=== PATIENT | female | born 1990 ===

== ENCOUNTER 2020-07-19 16:51 | Observation (INO) | payer OTHER ==
[2020-07-19 18:39] LABS: Hemoglobin 10.4 gm/dl (10.1-14.3); Mean Corpuscular HGB Conc 34 % (30-34); Mean Corpuscular Volume 85 fl (79-97); Platelet Count 244 K/mm3 (140-440); Red Blood Count 3.66 M/mm3 (3.65-5.03); Red Cell Distribution Width 14.6 % (13.2-15.2)
[2020-07-19 18:46] LABS: Bacteria,Urine 1+ /HPF (Negative); Bilirubin,Urine NEG (Negative); Blood,Urine NEG (Negative); Color,Urine Yellow (Yellow); Mucus,Urine FEW /HPF; Urobilinogen,Urine < 2.0 mg/dL (<2.0)
[2020-07-19 18:55] LABS: Alanine Aminotransferase 9 units/L (7-56); Uric Acid 4.3 mg/dL (3.5-7.6)
[2020-07-19] MEDS ORDERED: LACTATED RINGERS 1,000 ML ONE (20:56)
[2020-07-19] MEDS: glyBURIDE 5 MG TAB PO SCH (22:11)
[2020-07-20] MEDS: LACTATED RINGERS 1,000 ML IV SCH ×2 (03:40→12:54)
[2020-07-20] MEDS: PRENATAL VIT27-FE FUMARATE-FOLIC ACID VIT TAB PO SCH (10:03)
--- NOTE | 2020-07-20 10:55 | History and Physical Report ---
History of Present Illness Date of examination: 07/20/20 Date of admission: 07/19/20 19:20 Chief complaint: elevated blood pressures, gestational diabetes at 34 weeks History of present illness: 30 yo at 34w3d c/b prior c/s x 3, gestational diabetes (recently started on meds 07/19/2020), chronic hypertension, class III obesity presenting from [facility] for 24H TP, PIH workup, and CBG monitoring. Started on labetolol 200mg BID on 07/19/2020. Started on glyburide 5mg BID 07/19/2020. Patient denies PIH complaints at this time. Has hx of mildy blurry vision x multiple months. Past History Past Medical History: hypertension, diabetes Past Surgical History: section (x3) Family/Genetic History: diabetes, heart disease, hypertension, stroke, cancer, other (alzhiemers) Social history: no significant social history - Obstetrical History : 4 Para: 3 Hx # Term Pregnancies: 3 Number of Living Children: 3 Medications and Allergies Allergies Allergy/AdvReac Type Severity Reaction Status Date / Time No Known Allergies Allergy Verified 07/19/20 17:17 Active Meds: Active Medications Betamethasone Acet/Betameth SodPhos (Celestone Soluspan) 12 mg IM Q24HR [facility] Glyburide (Diabeta) 5 mg PO BIDDIAB [facility] Last Admin: 07/19/20 22:11 Dose: 5 mg Documented by: Lactated Ringer's (Lactated Ringers) 1,000 mls @ 125 mls/hr IV DIRECT [facility] Last Admin: 07/20/20 03:40 Dose: 125 mls/hr Documented by: Labetalol HCl (Labetalol) 200 mg PO BID [facility] Last Admin: 07/20/20 10:03 Dose: 200 mg Documented by: Labetalol HCl (Labetalol) 20 mg IV Q1HR PRN PRN Reason: Hypertension Multivitamins/Iron/Calcium ( Vitamin) 1 each PO QDAY [facility] Last Admin: 07/20/20 10:03 Dose: 1 each Documented by: Review of Systems All systems: negative (expect HPI) - Vital Signs Vital signs: Vital Signs Pulse BP 77 144/85 07/19/20 17:40 07/19/20 17:40 Temp Pulse Resp BP Pulse Ox 97.7 F 78 18 176/104 98 07/20/20 08:58 07/20/20 10:03 07/20/20 08:58 07/20/20 10:03 07/19/20 19:56 - Physical Exam Abdomen: Positive: normal appearance, normal bowel sounds, other (gravid) - Obstetrical FHR: category 1 Uterine Contraction Monitor Mode: External Uterine Contraction Pattern: Absent Results Result Diagrams: 07/19/20 Unknown 07/19/20 Unknown Abnormal lab results 07/19/20 07/19/20 07/20/20 Range/Units Unknown Unknown 05:50 WBC 11.8 H (4.5-11.0) K/mm3 Creatinine 0.4 L (0.6-1.2) mg/dL POC Glucose 68 L (70-105) mg/dL All other labs normal. Assessment and Plan - Patient Problems (1) Chronic hypertension affecting Current Visit: Yes Status: Acute Plan to address problem: Presenting for blood pressure evaluation given elevated BPs to 160s in [facility] clinic --Started on labetolol 200mg BID, titrate prn --IV antihyertensives prn --BMZ x 2 for lung maturity --Consider magnesium and antibiotics if indication for delivery --24H TP pending --monitor of s/sx of preeclampsia --Anticipate repeat c/s if indication for delivery --Declines BTL after mulitple discussions regarding risks associated with multiple c/s with medical comorbidites (2) Gestational diabetes mellitus (GDM) Current Visit: Yes Status: Acute Plan to address problem: --Monitor CBGs per routine --Started on glyburide 5mg BID -- (3) H/O: Current Visit: Yes Status: Acute Plan to address problem: --Hx C/s x 3. Counselling extensively in clinic and hospital about the risk associated with multiple repeat c/s including . Patient declines BTL --For repeat c/s if indicated
[2020-07-20] MEDS: glyBURIDE 5 MG TAB PO SCH ×3 (14:15→22:19)
[2020-07-20] MEDS: BETAMET ACET/BETAMET NA PH 6 MG/ML INJ 5 ML MDV IM SCH (14:32)
[2020-07-20 21:44] LABS: Creatinine 24 Hour,Urine 0.7 (0.8-2.8); Creatinine,Urine 26.5 mg/dL (0.1-20.0)
[2020-07-21] MEDS: glyBURIDE 5 MG TAB PO SCH ×2 (08:43→17:25)
[2020-07-21] MEDS: PRENATAL VIT27-FE FUMARATE-FOLIC ACID VIT TAB PO SCH ×2 (08:43→12:10)
--- NOTE | 2020-07-21 12:28 | Ultrasound Report ---
ULTRASOUND BIOPHYSICAL PROFILE INDICATION: 32 weeks, chronic hypertension for BP eval. COMPARISON: None available. FINDINGS: BREATHING MOVEMENT = 2 GROSS BODY MOVEMENT = 2 TONE = 2 QUALITATIVE AMNIOTIC FLUID VOLUME = 2 TOTAL BIOPHYSICAL SCORE = 03/24 AMNIOTIC FLUID INDEX (cm) = 5.7 PRESENTATION: Breech. HEART RATE (beats per minute): 130 IMPRESSION: 1. biophysical profile = 03/24 Signer Name: Nick Wood MD Signed: 07/21/2020 12:23 PM Workstation Name: [id number]
[2020-07-21] MEDS: LACTATED RINGERS 1,000 ML IV SCH ×2 (14:37→22:04)
[2020-07-21] MEDS: BETAMET ACET/BETAMET NA PH 6 MG/ML INJ 5 ML MDV IM SCH (14:37)
[2020-07-22] MEDS: LACTATED RINGERS 1,000 ML IV SCH (05:38)
--- NOTE | 2020-07-22 12:16 | Progress Note ---
Assessment and Plan - Patient Problems (1) Chronic hypertension affecting Current Visit: Yes Status: Acute Plan to address problem: Presenting for blood pressure evaluation given elevated BPs to 160s in [facility] clinic --Continue on labetolol 300mg q8hr, titrate prn --IV antihyertensives prn --BMZ x 2 for lung maturity --Consider magnesium and antibiotics if indication for delivery --24H TP wnl --monitor of s/sx of preeclampsia --Anticipate repeat c/s if indication for delivery --Declines BTL after mulitple discussions regarding risks associated with multiple c/s with medical comorbidites (2) Gestational diabetes mellitus (GDM) Current Visit: Yes Status: Acute Plan to address problem: --Monitor CBGs per routine --Started on glyburide 5mg BID -- (3) H/O: Current Visit: Yes Status: Acute Subjective - Subjective Date of service: 07/21/20 Principal diagnosis: elevated blood pressures Interval history: BPs still intermittently elevated on current regimen. Titrating prn. Patient reports feeling well. Denies s/sx of preE. Objective - Vital Signs Vital Signs: Vital Signs - 12hr 07/22/20 07/22/20 07/22/20 01:02 02:01 03:01 Temperature Pulse Rate 81 70 74 Respiratory Rate Blood Pressure 141/82 136/72 176/83 07/22/20 07/22/20 07/22/20 03:09 04:00 04:01 Temperature 98.3 F Pulse Rate 62 57 L Respiratory 18 Rate Blood Pressure 152/72 144/68 07/22/20 07/22/20 07/22/20 05:02 05:11 05:29 Temperature Pulse Rate 75 62 61 Respiratory Rate Blood Pressure 176/79 167/80 174/86 07/22/20 07/22/20 07/22/20 05:36 06:11 06:40 Temperature Pulse Rate 61 60 83 Respiratory Rate Blood Pressure 174/86 164/78 196/81 07/22/20 07/22/20 07/22/20 06:44 06:51 07:13 Temperature Pulse Rate 64 64 63 Respiratory Rate Blood Pressure 174/82 174/82 184/88 07/22/20 07/22/20 07/22/20 07:17 07:20 07:22 Temperature Pulse Rate 62 66 67 Respiratory Rate Blood Pressure 177/86 149/77 153/80 07/22/20 07/22/20 07/22/20 07:25 07:30 09:51 Temperature 98.8 F Pulse Rate 68 76 Respiratory Rate Blood Pressure 155/81 143/80 - Exam Abdomen: Present: normal appearance, normal bowel sounds, other (gravid) Uterine Contraction Monitor Mode: External Uterine Contraction Pattern: Absent - Labs Labs: Abnormal Labs 07/19/20 07/19/20 07/20/20 Unknown Unknown 05:50 WBC 11.8 H Creatinine 0.4 L POC Glucose 68 L Urine Creatinine Ur Creatinine 24 Hour Ur Total Protein 24 Hr 07/20/20 07/20/20 07/21/20 20:09 20:50 17:22 WBC Creatinine POC Glucose 124 H 114 H Urine Creatinine 26.5 H Ur Creatinine 24 Hour 0.7 L Ur Total Protein 24 Hr 212.00 H 07/21/20 21:30 WBC Creatinine POC Glucose 156 H Urine Creatinine Ur Creatinine 24 Hour Ur Total Protein 24 Hr Laboratory Results - last 24 hr 07/21/20 07/21/20 07/22/20 17:22 21:30 08:15 POC Glucose 114 H 156 H 95 07/22/20 12:08 POC Glucose 86
[2020-07-22 16:08] VITALS: BP 149/72
--- NOTE | 2020-07-22 17:06 | Discharge Summary ---
Providers - Providers Date of Admission: 07/19/20 19:20 Date of discharge: 07/22/20 Attending physician: IVY LYNN 07/19/20 19:20 Consult to Dietitian/Nutrition [CONS] Routine Physician Instructions: Reason For Exam: Reason for Consult: Diet education Primary care physician: IVY LYNN Hospitalization Reason for admission: observation, other (elevated blood pressures) Hospital course: 30 yo at 34w5d c/b prior c/s x 3, gestational diabetes (recently started on meds 07/19/2020), chronic hypertension, class III obesity admitted for BP evaluation after elevated BPs in clinic. BP medication titrated to labetolol 400mg q8hrs with improvement of BPs. TP 212. PIH labs wnl. Denies s/sx of preeclampsia during admission. S/p betamethasone x 2 doses for lung maturity. Continue on glyburide 5mg BID for gestational diabetes. Discharged in good condition with plan for highway engineer follow up at [facility] on 07/23/2020. Condition at discharge: Fair Disposition: DC-01 TO HOME OR SELFCARE - Discharge Diagnoses (1) Chronic hypertension affecting Status: Acute (2) Gestational diabetes mellitus (GDM) Status: Acute (3) H/O: Status: Acute Plan - Discharge Medications Prescriptions: glyBURIDE [Diabeta] 5 mg PO BID #60 tablet labetaloL [Labetalol 200mg TAB] 400 mg PO Q8H #90 tablet - Provider Discharge Summary Additional instructions: [] Smoking cessation referral if applicable(refer to patient education folder for contact #) [] Refer to [facility]'s [facility] Booklet Call your doctor immediately for: * Fever > 100.5 * Heavy vaginal bleeding ( >1 pad per hour) * Severe persistent headache * Shortness of breath * Reddened, hot, painful area to leg or breast * Drainage or odor from incision. * Keep incision clean and dry at all times and follow doctor's instructions regarding bathing/showering - Follow up plan Follow up: IVY LYNN MD [Primary Care Provider] - 7 Days
--- NOTE | 2020-07-23 15:08 | Ultrasound Report ---
ULTRASOUND OBSTETRIC LIMITED AND BIOPHYSICAL PROFILE INDICATION: 32 weeks, chronic hypertension for BP eval. COMPARISON: None available. FINDINGS: BREATHING MOVEMENT = 2 GROSS BODY MOVEMENT = 2 TONE = 2 QUALITATIVE AMNIOTIC FLUID VOLUME = 2 TOTAL BIOPHYSICAL SCORE = 8/8 AMNIOTIC FLUID INDEX (cm) = 5.7 PRESENTATION: Breech. HEART RATE (beats per minute): 130 IMPRESSION: 1. biophysical profile = 8/8 2. No acute sonographic abnormality. Signer Name: Ronal Polanco MD Signed: 07/23/2020 3:03 PM Workstation Name: [id number]
== END 2020-07-22 16:29 | disposition home or self-care (01) ==
LOC: TRG 16:51 → APU 16:52 → TRG 19:19 → LD 19:20
PROVIDERS: ADMIT Obstetrics & Gynecology; ATTEND Obstetrics & Gynecology
DX: O24.419 Gestational diabetes mellitus in pregnancy, unspecified control (principal); Z20.828 Contact with and (suspected) exposure to other viral communicable diseases; O10.913 Unspecified pre-existing hypertension complicating pregnancy, third trimester; Z98.891 History of uterine scar from previous surgery; Z3A.34 34 weeks gestation of pregnancy
CPT/HCPCS: 36415; 76815; 76819; 81001; 82565; 82570; 82962; 84156; 84450; 84460; 84550; 85027; 96361; 96372; 96374; 96376; G0378; J0702; J7120; U0003

== ENCOUNTER 2022-01-17 22:31 | Emergency (ER) | payer MEDICAID, OTHER ==
[2022-01-17 23:56] VITALS: BP 189/93
== END 2022-01-18 03:10 | disposition left against medical advice (07) ==
LOC: ED 22:31
DX: J02.9 Acute pharyngitis, unspecified (principal); Z53.21 Procedure and treatment not carried out due to patient leaving prior to being seen by health care provider